=== PATIENT | female | born 1995 | race African-American/Black ===

== ENCOUNTER 2017-02-10 22:39 | Emergency (ER) | payer SELFPAY ==
--- NOTE | 2017-02-11 00:15 | ER Document Report ---
ED General - General Chief Complaint: Chest Pain Stated Complaint: CHEST PAIN Time Seen by Provider: 02/11/17 00:06 Notes: Patient is a 21-year-old female presents with complaint of chest pain and tachycardia. Patient says that her pain is been worsening over the course of a month. She has not seen a doctor for her symptoms. She says the pain seems to be a little better when she lies flat against the bed. She denies being on any medications other than the postop. She does not smoke. No alcohol use. No cocaine use. No history of any heart issues. No history of PE or DVT. No recent leg pain or leg swelling. No fevers or infections. No other complaints at this time. No trauma to the chest. TRAVEL OUTSIDE OF THE [place] IN LAST 30 DAYS: No Past Medical History - Social History Smoking Status: Never Smoker Frequency of alcohol use: None Drug Abuse: None Family History: Reviewed & Not Pertinent Patient has suicidal ideation: No Patient has homicidal ideation: No Renal/ Medical History: Denies: Hx Peritoneal Dialysis Review of Systems - Review of Systems Notes: My Normal Review Basic REVIEW OF SYSTEMS: CONSTITUTIONAL : Denies fever, chills, or sweats. Denies recent illness. EENT: Denies eye, ear, throat, or mouth pain or symptoms. Denies nasal or sinus congestion. CARDIOVASCULAR: Chest pain RESPIRATORY: Denies cough, cold, or chest congestion. Denies shortness of breath, difficulty breathing, or wheezing. GASTROINTESTINAL: Denies abdominal pain. Denies nausea, vomiting, or diarrhea. Denies constipation. Last BM: MUSCULOSKELETAL: Denies neck or back pain or joint pain or swelling. SKIN: Denies rash or skin lesions. NEUROLOGICAL: Denies altered mental status or loss of consciousness. Denies headache. Denies weakness or paralysis or loss of use of either side. Denies problems with gait or speech. Denies sensory or motor loss. ALL OTHER SYSTEMS REVIEWED AND NEGATIVE. Physical Exam - Vital signs Vitals: Temp Pulse Resp BP Pulse Ox 98.6 F 153 H 24 H 142/87 H 100 02/10/17 22:51 02/10/17 22:51 02/10/17 22:51 02/10/17 22:51 02/10/17 22:51 - Notes Notes: General Appearance: Well nourished, alert, cooperative, no acute distress, moderate obvious discomfort. Vitals: reviewed, See vital signs table. Head: no swelling or tenderness to the head Eyes: PERRL, EOMI, Conjuctiva clear Mouth: No decreasd moisture Neck: Supple, no neck tenderness, No thyromegaly Lungs: No wheezing, No rales, No rhonci, No accessory muscle use, good air exchange bilaterally. Heart: Rapid rate, Regular rythm, No murmur, no rub Abdomen: Normal BS, soft, No rigidity, No abdominal tenderness, No guarding, no rebound, no abdominal masses, no organomegaly Extremities: strength 5/5 in all extremities, good pulses in all extremities, no swelling or tenderness in the extremities, no edema. Skin: warm, dry, appropriate color, no rash Neuro: speech clear, oriented x 3, normal affect, responds appropriately to questions. Course - Re-evaluation Re-evalutation: 02/11/17 01:38 Patient is feeling much improved after the pain medicine and Ativan. Her heart rate is now down into the 80s. I will obtain a CTA of her chest being that she has been having this pain for month and she came in very tachycardic with the pain. 02/11/17 02:[address] is negative. Heart rate continues be normal. Some of pain is starting to come back. I will give a dose of Toradol. I will discharge her home on Naprosyn. Patient is no evidence of PE or DVT on the CT scan. Her cardiac enzymes are negative. She has no coronary artery risk factors. She is no pleural effusion. Pain is been ongoing for months. This could be related to costochondritis or possible pleurisy. I informed her follow-up closely with her primary care doctor. Also included Dr. Dumont on the discharge paperwork if she is unable to follow-up with her primary care doctor. Patient encouraged to return to ER if she is worsening pain, difficulty breathing, or feels unwell. Patient agrees with the plan and will be discharged home. Dictation of this chart was performed using voice recognition software; therefore, there may be some unintended grammatical errors. - Vital Signs Vital signs: Temp Pulse Resp BP Pulse Ox 98.6 F 71 22 H 122/79 100 02/10/17 22:51 02/11/17 02:00 02/11/17 02:23 02/11/17 02:23 02/11/17 02:23 - Laboratory Result Diagrams: 02/11/17 00:50 02/11/17 00:50 Laboratory results interpreted by me: 02/11/17 00:50 Hgb 11.6 L Hct 35.3 L MCV 79 L MCH 26.1 L RDW 15.9 H Eosinophils % 6.1 H - EKG Interpretation by Me Additional EKG results interpreted by me: 02/11/17 00:07 EKG is reviewed and interpreted by me. EKG shows sinus tachycardia with a rate of [address] segment elevation or depression. No ischemic T-wave inversions. FL interval, QRS duration, QTc intervals are within normal range. No old EKG available for comparison. Procedures - Ultrasound/Bedside Bedside cardiac ultrasound Notes: 02/11/17 01:39 Ultrasound was performed and interpreted by me. Bedside cardiac ultrasound was performed to look for any evidence of pericardial effusion. I performed a long axis and short axis parasternal view of the heart. I saw no evidence of pericardial effusion on either view. Discharge - Discharge Clinical Impression: Chest pain Qualifiers: Chest pain type: unspecified Qualified Code(s): R07.9 - Chest pain, unspecified Condition: Good Disposition: HOME, SELF-CARE Additional Instructions: Your blood work looking at your heart was normal. We performed a CT scan of your chest. The CT scan showed no evidence of blood clots in your lungs and no evidence of fluid around your heart. Your pain could possibly be related to inflammation around the lungs. This is called pleurisy. Could also be related to inflammation of the rib cartilage. At this time we will treat you with anti- inflammatory medications to see if this helps your pain. Please follow-up with your doctor in 1 week for reevaluation. If you are unable to follow-up with your primary care doctor you can follow-up with the gypsum roofer, Dr. Dumont. I have included his name and number in your discharge instructions. Return to the ER if you have fevers, worsening pain, or difficulty breathing. Prescriptions: Naproxen [Naprosyn 250 mg Tablet] 250 mg PO BID #20 tablet Forms: Return to Work Referrals: KE DUMONT MD [ACTIVE STAFF] - 02/18/17
[2017-02-11] MEDS ORDERED: MORPHINE SULFATE 10 MG/ML INJ IV ONE (00:16)
[2017-02-11] MEDS ORDERED: LORAZEPAM INJ 2 MG/1 ML VIAL IV ONE (00:16)
--- NOTE | 2017-02-11 01:02 | RADIOLOGY REPORT (SQ) ---
EXAM DESCRIPTION: CHEST SINGLE VIEW COMPLETED DATE/TIME: 02/11/2017 12:33 am REASON FOR STUDY: chest pain COMPARISON: None. EXAM PARAMETERS: NUMBER OF VIEWS: One view. TECHNIQUE: Single frontal radiographic view of the chest acquired. RADIATION DOSE: NA LIMITATIONS: None. FINDINGS: LUNGS AND PLEURA: No opacities, masses or pneumothorax. No pleural effusion. MEDIASTINUM AND HILAR STRUCTURES: No masses. Contour normal. HEART AND VASCULAR STRUCTURES: Heart normal in size. Normal vasculature. BONES: No acute findings. HARDWARE: None in the chest. OTHER: No other significant finding. IMPRESSION: NO ACUTE RADIOGRAPHIC FINDING IN THE CHEST. TECHNICAL DOCUMENTATION: JOB ID: [id number]
[2017-02-11 01:07] LABS: ABSOLUTE EOSINOPHILS # (AUTO) 0.3 10^3/uL (0.0-0.6); ABSOLUTE LYMPHOCYTES (AUTO) 1.4 10^3/uL (0.5-4.7); ABSOLUTE MONOCYTES (AUTO) 0.6 10^3/uL (0.1-1.4); ABSOLUTE NEUT (AUTO) 2.8 10^3/uL (1.7-8.2); BASOPHILS % (AUTO) 0.3 % (0-2); EOSINOPHILS % (AUTO) 6.1 % (0-6); HEMATOCRIT 35.3 % (36.0-47.0); HEMOGLOBIN 11.6 g/dL (12.0-15.5); HGB HCT DIFFERENCE -0.5; LYMPHOCYTES % (AUTO) 27.9 % (13-45); MEAN CORPUSCULAR HEMOGLOBIN 26.1 pg (27.0-33.4); MEAN CORPUSCULAR HGB CONC 32.9 g/dL (32.0-36.0); MEAN CORPUSCULAR VOLUME 79 fl (80-97); MONOCYTES % (AUTO) 11.7 % (3-13); RED BLOOD COUNT 4.45 10^6/uL (3.72-5.28); RED CELL DISTRIBUTION WIDTH 15.9 % (11.5-14.0); WHITE BLOOD COUNT 5.1 10^3/uL (4.0-10.5)
[2017-02-11 01:13] LABS: APPEARANCE,URINE CLEAR; BILIRUBIN,URINE NEGATIVE (NEGATIVE); GLUCOSE, URINE NEGATIVE (NEGATIVE); KETONES,URINE NEGATIVE (NEGATIVE); LEUKOCYTE ESTERASE,URINE NEGATIVE (NEGATIVE); NITRITE,URINE NEGATIVE (NEGATIVE); PROTEIN,URINE NEGATIVE (NEGATIVE); URINE SPECIFIC GRAVITY 1.023; UROBILINOGEN,URINE NEGATIVE mg/dL (<2.0)
[2017-02-11 01:19] LABS: ALANINE AMINOTRANSFERASE 19 U/L (9-52); ALBUMIN 4.2 g/dL (3.5-5.0); ALKALINE PHOSPHATASE 90 U/L (38-126); ANION GAP 14 (5-19); ASPARTATE AMINO TRANSFERASE 16 U/L (14-36); BILIRUBIN,DIRECT 0.3 mg/dL (0.0-0.4); BILIRUBIN,TOTAL 0.3 mg/dL (0.2-1.3); BLOOD UREA NITROGEN 12 mg/dL (7-20); CALCIUM 9.8 mg/dL (8.4-10.2); CARBON DIOXIDE 23 mmol/L (22-30); CHLORIDE 107 mmol/L (98-107); CREATINE KINASE 81 U/L (30-135); CREATININE RESULT 0.77 mg/dL (0.52-1.25); GLUCOSE 96 mg/dL (75-110); MAGNESIUM 1.9 mg/dL (1.6-2.3); POTASSIUM 4.3 mmol/L (3.6-5.0); SODIUM 143.9 mmol/L (137-145)
[2017-02-11 01:33] LABS: CREATINE KINASE MB < 0.22 ng/mL (<4.55); TROPONIN I < 0.012 ng/mL
[2017-02-11] MEDS ORDERED: NORMAL SALINE 1000 ML 1,000 ML IV ONE (01:36)
[2017-02-11 02:13] LABS: THYROID STIMULATING HORMONE 1.05 uIU/mL (0.47-4.68)
--- NOTE | 2017-02-11 02:36 | RADIOLOGY REPORT (SQ) ---
EXAM DESCRIPTION: CTA CHEST COMPLETED DATE/TIME: 02/11/2017 2:18 am REASON FOR STUDY: chest pain, tachycardia COMPARISON: None. TECHNIQUE: CT scan of the chest performed using helical scanning technique with dynamic intravenous contrast injection. Images reviewed with lung, soft tissue and bone windows. Reconstructed coronal and sagittal MPR images reviewed. Additional 3 dimensional post-processing performed to develop Maximal Intensity Projection images (TX P). All images stored on PACS. All CT scanners at this facility use dose modulation, iterative reconstruction, and/or weight based d osing when appropriate to reduce radiation dose to as low as reasonably achievable (ALARA). [facility]: Dose Right [facility]: CareDose [facility]: Dose Right [facility]: Teradose 4D [facility]: HotDesk CONTRAST TYPE AND DOSE: contrast/concentration: Isovue 370.00 mg/ml; Total Contrast Delivered: 100.0 ml; Total Saline Delivered: 65.0 ml RENAL FUNCTION: None required. The patient is less than 50 years old. RADIATION DOSE: Up-to-date CT equipment and radiation dose reduction techniques were employed. CTDIv ol: 24.8 mGy. DLP: 707 mGy-cm. . LIMITATIONS: None. FINDINGS: LUNGS AND PLEURA: No masses, infiltrates, pneumothorax. No pleural effusions, calcificati ons. AORTA AND GREAT VESSELS: No aneurysm or dissection. HEART: No pericardial effusion. PULMONARY ARTERIES: No emboli visualized in the main pulmonary arteries or the segmental branches. HILAR AND MEDIASTINAL STRUCTURES: No identified masses or abnormal nodes. HARDWARE: None in the chest. UPPER ABDOMEN: No significant findings. Limited exam. THYROID AND OTHER SOFT TISSUES: No masses. No adenopathy. BONES: No acute or significant finding. 3D MIPS: Confirm above findings. OTHER: No other significant finding. IMPRESSION: NORMAL CTA OF THE CHEST. NO PULMONARY EMBOLI. TECHNICAL DOCUMENTATION: JOB ID: [id number] Quality ID # [id number]: Final reports with documentation of one or more dose reduction techniques (e.g., Au tomated exposure control, adjustment of the mA and/or kV according to patient size, use of iterative reconstruction technique) 2010 [email or web address]- All Rights Reserved
[2017-02-11] MEDS ORDERED: KETOROLAC TROMETHAMINE INJ/PF 30 MG/1 ML SDV IV ONE (02:42)
[2017-02-11 04:41] VITALS: BP 119/77
--- NOTE | 2017-02-11 12:21 | EKG REPORT ---
SEVERITY:- BORDERLINE ECG - SINUS TACHYCARDIA PROBABLE LEFT ATRIAL ABNORMALITY : Confirmed by: Christen Leon MD 11-Feb-2017 12:21:25
== END 2017-02-11 04:41 | disposition home or self-care (01) ==
LOC: ER 22:39
DX: R07.9 Chest pain, unspecified (principal); R00.0 Tachycardia, unspecified
CPT/HCPCS: 99285; 96361; 96374; 96375; 36415; 84439; 82553; 82550; 83735; 84443; 84703; 85025; 80053; 81001; 84484; 71010; 71275; 93005; 93010; J1885; J2270; J2060; J7030

== ENCOUNTER 2017-02-24 20:43 | Emergency (ER) | payer SELFPAY ==
[2017-02-24] MEDS ORDERED: CEPHALEXIN 500 MG CAPSULE PO ONE (23:32)
[2017-02-24] MEDS ORDERED: SULFAMETHOXAZOLE/TRIMETHOPRIM 800-160 MG TABLET PO ONE (23:32)
--- NOTE | 2017-02-24 23:32 | ER Document Report ---
ED Skin Rash/Insect Bite/Abscs - General Mode of Arrival: Ambulatory Information source: Patient TRAVEL OUTSIDE OF THE [place] IN LAST 30 DAYS: No - HPI Similar symptoms previously: No Recently seen / treated by doctor: No - General Chief Complaint: Breast Lump Stated Complaint: POSS LUMP ON BREAST Time Seen by Provider: 02/24/17 23:19 - HPI Notes: Patient is a 21-year-old female presented emergency department for a lump between her breasts. Patient states she noticed it last Friday and has become increasingly painful. Patient states that she tried using some witch cathy and Epsom salts with no relief. Patient has no known allergies. Patient is on the double shot. Patient has no other medical problems besides history of Bartholin 's cyst which was removed. (JAMES HOLGUIN) - Related Data Allergies/Adverse Reactions: No Known Allergies Allergy (Unverified 02/24/17 21:31) Past Medical History - General Information source: Patient - Social History Smoking Status: Never Smoker Cigarette use (# per day): No Chew tobacco use (# tins/day): No Smoking Education Provided: No Frequency of alcohol use: None Drug Abuse: None Family History: None Patient has suicidal ideation: No Patient has homicidal ideation: No Surgical Hx: Negative Review of Systems - Review of Systems Constitutional: No symptoms reported EENT: No symptoms reported Cardiovascular: No symptoms reported Respiratory: No symptoms reported Gastrointestinal: No symptoms reported Genitourinary: No symptoms reported Female Genitourinary: No symptoms reported Musculoskeletal: No symptoms reported Skin: See HPI Hematologic/Lymphatic: No symptoms reported Neurological/Psychological: No symptoms reported -: Yes All other systems reviewed and negative Physical Exam - Vital signs Interpretation: Normal - Vital signs Vitals: Temp Pulse Resp BP Pulse Ox 98.7 F 97 16 125/72 99 02/24/17 21:31 02/24/17 21:31 02/24/17 21:31 02/24/17 21:31 02/24/17 21:31 - Notes Notes: GENERAL: Alert, interacts well. No acute distress. HEAD: Normocephalic, atraumatic. EYES: Appear normal. Pupils equal, round, and reactive to light. ENT: Moist mucus membranes, tongue midline. NECK: Full range of motion. Supple. Trachea midline. LUNGS: No respiratory distress. EXTREMITIES: Moves all 4 extremities spontaneously. Normal strength. No edema. NEUROLOGICAL: Alert and oriented x3. Normal speech. No focal neurological deficits. GCS 15. PSYCH: Normal affect, normal mood. SKIN: Warm, dry, normal turgor. Small cystic tender area located at the right top of the breast cleft, it is firm, not fluctuant. There is an extension of the area to the left which is less tender and smaller in size. (JAMES HOLGUIN) - Vital Signs Vital signs: Temp Pulse Resp BP Pulse Ox 98.7 F 97 16 125/72 99 02/24/17 21:31 02/24/17 21:31 02/24/17 21:31 02/24/17 21:31 02/24/17 21:31 Discharge - Discharge Clinical Impression: Abscess Condition: Stable Disposition: HOME, SELF-CARE Additional Instructions: Abscess: You have an abscess (boil). This a pus-forming infection, usually due to staph. Some boils may be left to drain on their own, but most require lancing. From the time the tender lump first appears, it may be three or four days before the abscess is ready to susanna. Local heat and rest help at this stage of treatment. An antibiotic may prevent spread of the infection. Once the abscess is opened, packing may be placed into it. This is done so pus is not sealed inside by premature closure of the cavity. The packing will be removed at your follow-up visit or you may be advised to remove it yourself at home. Sometimes this packing must be replaced a few times during healing. The wound will heal with surprisingly little scar. Depending on the size and location of an abscess, healing can take one to four weeks. You may shower and wash the area around the incision site two or three times a day. Antibiotics may be prescribed, but are usually not necessary after an abscess has been drained. If you develop fever, chilling, worsening pain, or increasing swelling in the area, call the doctor or return immediately. THE INFLAMED CYSTIC AREA IS NOT FLUCTUANT AT THIS TIME. IT MAY CALM DOWN WITH THE ANTIBIOTICS AND NOT NEED INCISION AND DRAINAGE. TAKE THE MEDICATION PRESCRIBED. APPLY MOIST HEAT OR WARM SOAKS TO THE AREA. RETURN TO THE EMERGENCY ROOM IF THE SWELLING GETS WORSE--THE AREA MAY NEED TO BE OPENED AND DRAINED. Prescriptions: Cephalexin Monohydrate [Keflex 500 mg Capsule] 500 mg PO QID #28 capsule Sulfamethoxazole/Trimethoprim [Bactrim Ds Tablet] 2 tab PO BID #28 tablet Scribe Attestation: 02/24/17 23:37 I personally performed the services described in the documentation, reviewed and edited the documentation which was dictated to the scribe in my presence, and it accurately records my words and actions. (SOFÍA MENDOZA) Scribe Documentation - Scribe Written by Benny:: Benny Hudson 02/24/2017 23:55 acting as scribe for :: Gertrudis
[2017-02-25 00:03] VITALS: BP 124/70
== END 2017-02-25 00:02 | disposition home or self-care (01) ==
LOC: ER 20:43
DX: N61.1 Abscess of the breast and nipple (principal)
CPT/HCPCS: 99282

== ENCOUNTER 2017-07-22 21:34 | Emergency (ER) | payer SELFPAY ==
[2017-07-22] MEDS ORDERED: ALBUTEROL SULFATE 0.083% NEB 2.5 MG/3 ML AMPUL NEB SCH (23:45)
[2017-07-22] MEDS ORDERED: PREDNISONE 20 MG TABLET PO ONE (23:48)
[2017-07-22] MEDS ORDERED: ACETAMINOPHEN 325 MG TABLET PO ONE (23:51)
--- NOTE | 2017-07-22 23:51 | ER Document Report ---
ED Medical Screen (RME) - General Chief Complaint: Chest Tightness Stated Complaint: CHEST TIGHTNESS Time Seen by Provider: 07/22/17 23:46 Mode of Arrival: Ambulatory Information source: Patient Notes: 22-year-old female presents to ED for chest tightness cough and wheezing since last week. She states she has had this off and on for several years. She states she came in the emergency room last year and was seen for the same thing and was not given any diagnosis. She states she has no past medical history. She does not smoke and has not smoked. She does not drink she does not use any alcohol. She states she does not work and she lives with her friend. Pulse was 116 in the emergency room temperature was 100.4 respirations were 16. Will get chest x-ray EKG and give her some albuterol and prednisone. We will re- evaluate her after that. TRAVEL OUTSIDE OF THE [place] IN LAST 30 DAYS: No - HPI Onset: Last week - Has also had it off and on for several years Quality of pain: Other - Tight Severity: Severe Pain Level: 5 Associated Symptoms: Chest pain, Cough (nonproductive), Rhinorrhea, Sinus pain/ drainage Exacerbated by: Coughing Relieved by: Denies Similar symptoms previously: Yes Recently seen / treated by doctor: No - Related Data Smoking: Non-smoker Frequency of alcohol use: None Drug Abuse: None Allergies/Adverse Reactions: No Known Allergies Allergy (Verified 04/20/17 15:06) Past Medical History - General Information source: Patient - Social History Cigarette use (# per day): No Chew tobacco use (# tins/day): No Frequency of alcohol use: None Drug Abuse: None Lives with: Friend Family history: Reviewed & Not Pertinent - Past Medical History Cardiac Medical History: Reports: None Pulmonary Medical History: Reports: None EENT Medical History: Reports: None Neurological Medical History: Reports: None Endocrine Medical History: Reports: None Renal/ Medical History: Reports: None Malignancy Medical History: Reports: None GI Medical History: Reports: None Musculoskeltal Medical History: Reports None Skin Medical History: Reports None Psychiatric Medical History: Reports: None Traumatic Medical History: Reports: None Infectious Medical History: Reports: None Surgical Hx: Negative Past Surgical History: Reports: None - Immunizations Immunizations up to date: Yes Hx Diphtheria, Pertussis, Tetanus Vaccination: Yes Review of Systems - Review of Systems Constitutional: No symptoms reported EENT: No symptoms reported Cardiovascular: Other - chest tight Respiratory: Cough, Wheezing Gastrointestinal: No symptoms reported Genitourinary: No symptoms reported Female Genitourinary: No symptoms reported Musculoskeletal: No symptoms reported Skin: No symptoms reported Hematologic/Lymphatic: No symptoms reported Neurological/Psychological: No symptoms reported -: Yes All other systems reviewed and negative Physical Exam - Vital signs Vitals: Temp Pulse Resp BP Pulse Ox 99.7 F 123 H 16 136/79 H 99 07/22/17 21:40 07/22/17 21:40 07/22/17 21:40 07/22/17 21:40 07/22/17 21:40 Interpretation: Normal - General General appearance: Appears well, Alert - HEENT Head: Normocephalic, Atraumatic Eyes: Normal Pupils: PERRL Ears: Normal External canal: Normal Tympanic membrane: Normal Sinus: Normal Nasal: Swelling, Clear rhinorrhea Pharynx: Post nasal drainage Neck: Normal - Respiratory Respiratory status: No respiratory distress. No: Respiratory distress, Tachypnea Chest status: Nontender Breath sounds: Decreased air movement, Nonproductive cough. No: Productive cough, Rales, Rhonchi, Stridor, Wheezing Chest palpation: Normal - Cardiovascular Rhythm: Regular, Tachycardia Heart sounds: Normal auscultation Murmur: No - Abdominal Inspection: Normal Distension: No distension Bowel sounds: Normal Tenderness: Nontender Organomegaly: No organomegaly - Back Back: Normal, Nontender - Extremities General upper extremity: Normal inspection, Nontender, Normal color, Normal ROM , Normal temperature General lower extremity: Normal inspection, Nontender, Normal color, Normal ROM , Normal temperature, Normal weight bearing. No: Nacho's sign - Neurological Neuro grossly intact: Yes Cognition: Normal Orientation: AAOx4 Franko Coma Scale Eye Opening: Spontaneous Franko Coma Scale Verbal: Oriented Franko Coma Scale Motor: Obeys Commands Franko Coma Scale Total: 15 Speech: Normal Motor strength normal: LUE, RUE, LLE, RLE Sensory: Normal - Psychological Associated symptoms: Normal affect, Normal mood - Skin Skin Temperature: Warm Skin Moisture: Dry Skin Color: Normal Course - Re-evaluation Re-evalutation: 07/23/17 01:07 Negative chest x-ray. Patient was treated with 2 albuterol and prednisone will be discharged home with albuterol inhaler and eScription for prednisone. Patient to follow-up with her primary doctor. - Vital Signs Vital signs: Temp Pulse Resp BP Pulse Ox 98.7 F 129 H 18 130/75 H 100 07/23/17 01:10 07/23/17 01:10 07/23/17 01:10 07/23/17 01:10 07/23/17 01:10 - Diagnostic Test Radiology reviewed: Image reviewed, Reports reviewed - EKG Interpretation by Me When compared to previous EKG there are: No significant change Doctor's Discharge - Discharge Clinical Impression: Viral respiratory illness Condition: Stable Disposition: HOME, SELF-CARE Instructions: Family Physicians / Practices Additional Instructions: UPPER RESPIRATORY ILLNESS: You have a viral infection of the respiratory passages -- a "cold." This common infection causes nasal congestion, drainage, and often sore throat and cough. It is highly contagious. The disease usually lasts about 10 to 14 days. There is no "cure" for the viral infection -- it must run its course. If there is a complication, such as bacterial infection in the nose, sinuses, middle ear, or bronchial tubes, antibiotics may be required. The antibiotics won't affect the virus. Drink plenty of fluids. A humidifier may help. An expectorant medication or decongestant may make you more comfortable. Use acetaminophen or ibuprofen for fever or aches. See the doctor if fever persists over two days, if there is any significant worsening of your symptoms, or if you simply fail to improve as expected. BRONCHOSPASM: You have tightness in the bronchial tubes, called bronchospasm. This often occurs with bronchial infections. Allergies, inhaled chemicals, and polluted or cold air can also provoke bronchospasm. It's more likely in patients with asthma in the family. Emergency treatment of bronchospasm may include adrenaline shots or bronchodilator aerosol. You may feel lightheaded and have a rapid pulse for an hour or two. Rest and get plenty of fluids. At home, we'll treat you with a bronchodilator inhaler. Antibiotics and corticosteroids may be required for some patients. Until you recover, avoid chemical fumes, dusts, pollens, and exercising in very cold or dry air. If you smoke, stop now!! If you develop a fever, increased wheezing, chest pain, or severe shortness of breath, you should contact the doctor immediately. COUGH-SUPPRESSANT & EXPECTORANT MEDICATION: You are to use a cough medication as needed for relief of symptoms. This medicine is a combination of an expectorant (to make the mucous thinner and more easily "coughed up") and a cough suppressant (to reduce the frequency of coughing). The cough-suppressant medicine is related to narcotics. You may experience mild nausea and sleepiness. Some patients who are very sensitive to narcotics may have stomach pain from this medicine. Taking the medicine with food reduces these side effects. Do not drive or work with machinery until you know how this medicine affects you. The expectorant should have no side effects. Iodine-containing expectorants (such as organidin) should not be taken by persons with active thyroid disease unless approved by your doctor. Call the doctor if you develop shortness of breath, hives, rash, itching, lightheadedness, or severe nausea and vomiting. INHALED BRONCHODILATORS: You have received a treatment of and/or prescription for an inhaled bronchodilator -- a medication which stimulates the airways in the lung to dilate. This improves the flow of air in asthma, bronchitis, and emphysema. These medicines have some similarity to adrenaline, and can cause similar side effects: shakiness, racing heart, and a sense of nervousness. These side effects decrease with time. Contact your doctor if these side effects are severe. Do not over-use the medicine. Too-frequent use of the inhaler may make it ineffective. Call your doctor if the inhaler is not controlling your symptoms at the prescribed doses. STEROID MEDICATION: You have been given an injection of or oral medicine of the cortisone/ steroid class. This medication is used to control inflammation or allergy. Ruperto t is usually only given for a short period of time, until the acute process subsides. There are usually no side effects from short-term use of cortisone-like medications. Some persons feel an increased sense of well-being and are not sleepy at bedtime. Long-term use of cortisone medications is best avoided, unless required for a severe condition. If your condition does not remit, or relapses after the course of corticosteroid medication, you should consult your physician. USE OF ACETAMINOPHEN (Tylenol): Acetaminophen may be taken for pain relief or fever control. It's much safer than aspirin, offering a wider range of "safe" dosages. It is safe during . Some brand names are Tylenol, Panadol, Datril, Anacin 3, Tempra, and Liquiprin. Acetaminophen can be repeated every four hours. The following are maximum recommended dosages: >89 pounds or adults 650 mg to 900 mg Acetaminophen can be repeated every four hours. Maximum dose not to exceed 4000 mg a day. FOLLOW-UP CARE: If you have been referred to a physician for follow-up care, call the physician s office for an appointment as you were instructed or within the next two days. If you experience worsening or a significant change in your symptoms, notify the physician immediately or return to the Emergency Department at any time for re-evaluation. Prescriptions: Prednisone [Deltasone 20 mg Tablet] 3 tab PO DAILY 5 Days tablet Forms: Elevated Blood Pressure Referrals: MIGNON ARMAS PA-C [Primary Care Provider] - Follow up as needed
--- NOTE | 2017-07-23 00:06 | RADIOLOGY REPORT (SQ) ---
EXAM DESCRIPTION: CHEST PA/LAT COMPLETED DATE/TIME: 07/22/2017 11:57 pm REASON FOR STUDY: chest pain COMPARISON: None. EXAM PARAMETERS: NUMBER OF VIEWS: two views TECHNIQUE: Digital Frontal and Lateral radiographic views of the chest acquired. RADIATION DOSE: NA LIMITATIONS: none FINDINGS: LUNGS AND PLEURA: No opacities, masses or pneumothorax. No pleural effusion. MEDIASTINUM AND HILAR STRUCTURES: No masses or contour abnormalities. HEART AND VASCULAR STRUCTURES: Heart normal size. No evidence for failure. BONES: No acute findings. HARDWARE: None in the chest. OTHER: No other significant finding. IMPRESSION: NO SIGNIFICANT RADIOGRAPHIC FINDING IN THE CHEST. TECHNICAL DOCUMENTATION: JOB ID: [id number] [place]-72 2010 [employer]- All Rights Reserved
[2017-07-23] MEDS ORDERED: ALBUTEROL SULFATE HFA (90 MCG/PUFF) 8 GM MDI (1 MDI/ER DISP) IH PRN (01:08)
[2017-07-23 01:28] VITALS: BP 130/75
--- NOTE | 2017-07-23 09:15 | EKG REPORT ---
SEVERITY:- BORDERLINE ECG - SINUS TACHYCARDIA PROBABLE LEFT ATRIAL ABNORMALITY : Confirmed by: Vasquez Cavanaugh 23-Jul-2017 09:15:16
== END 2017-07-23 01:20 | disposition home or self-care (01) ==
LOC: ER 21:34
DX: J98.9 Respiratory disorder, unspecified (principal); B97.89 Other viral agents as the cause of diseases classified elsewhere; R07.89 Other chest pain; R05 Cough; R06.2 Wheezing; J34.89 Other specified disorders of nose and nasal sinuses; R09.82 Postnasal drip
CPT/HCPCS: 93005; 99283; 71046; 93010; J7512; J3490

== ENCOUNTER 2017-08-21 16:01 | Emergency (ER) | payer SELFPAY ==
[2017-08-21] MEDS ORDERED: NORMAL SALINE 1000 ML 1,000 ML IV ONE (16:25)
--- NOTE | 2017-08-21 16:30 | ER Document Report ---
ED Medical Screen (RME) - General Chief Complaint: Cough Stated Complaint: CHEST PAIN Time Seen by Provider: 08/21/17 16:20 Notes: RME DISCLOSURE I have seen this patient as part of a Rapid Medical Evaluation and, if applicable, placed any initially appropriate orders. The patient will be seen and fully evaluated, including a full history and physical exam, by a provider ( in Main ED or Fast Track) when a room becomes available. 22-year-old female here with complaints of chest pain, shortness of breath ongoing for the past 4 hours. She was sitting at home with the pain started. She does not have any cough at this time and has not had any cough for at least one month. She does not have any wheezing congestion runny nose. She denies any extremity pain or swelling. No prior history of PE or family history of same. No recent surgery or prolonged immobilization. EXAM Moderately tachycardic, 120s-130s, regular rhythm Minimal tachypnea, low to mid 20s Minimal upper midsternal chest wall tenderness TRAVEL OUTSIDE OF THE [place] IN LAST 30 DAYS: No - Related Data Allergies/Adverse Reactions: No Known Allergies Allergy (Verified 08/21/17 16:03) Past Medical History - Social History Family history: Reviewed & Not Pertinent Renal/ Medical History: Denies: Hx Peritoneal Dialysis - Immunizations Immunizations up to date: Yes Hx Diphtheria, Pertussis, Tetanus Vaccination: Yes Physical Exam - Vital signs Vitals: Temp Pulse Resp BP Pulse Ox 98.5 F 135 H 24 H 135/78 H 99 08/21/17 16:10 08/21/17 16:10 08/21/17 16:10 08/21/17 16:10 08/21/17 16:10 Course - Vital Signs Vital signs: Temp Pulse Resp BP Pulse Ox 98.5 F 135 H 24 H 135/78 H 99 08/21/17 16:10 08/21/17 16:10 08/21/17 16:10 08/21/17 16:10 08/21/17 16:10
[2017-08-21 16:59] LABS: ABSOLUTE EOSINOPHILS # (AUTO) 0.2 10^3/uL (0.0-0.6); ABSOLUTE LYMPHOCYTES (AUTO) 0.7 10^3/uL (0.5-4.7); ABSOLUTE MONOCYTES (AUTO) 0.4 10^3/uL (0.1-1.4); ABSOLUTE NEUT (AUTO) 1.7 10^3/uL (1.7-8.2); BASOPHILS % (AUTO) 0.2 % (0-2); EOSINOPHILS % (AUTO) 5.8 % (0-6); HEMATOCRIT 39.3 % (36.0-47.0); HEMOGLOBIN 12.7 g/dL (12.0-15.5); LYMPHOCYTES % (AUTO) 23.4 % (13-45); MEAN CORPUSCULAR HGB CONC 32.3 g/dL (32.0-36.0); MEAN CORPUSCULAR VOLUME 80 fl (80-97); MONOCYTES % (AUTO) 14.6 % (3-13); PLATELET COUNT 297 10^3/uL (150-450); RED BLOOD COUNT 4.88 10^6/uL (3.72-5.28); RED CELL DISTRIBUTION WIDTH 15.2 % (11.5-14.0); TOTAL CELLS COUNTED % (AUTO) 100 %
[2017-08-21 17:19] LABS: ANION GAP 14 (5-19); BLOOD UREA NITROGEN 5 mg/dL (7-20); CALCIUM 9.6 mg/dL (8.4-10.2); CARBON DIOXIDE 24 mmol/L (22-30); CHLORIDE 105 mmol/L (98-107); GLUCOSE 85 mg/dL (75-110); POTASSIUM 4.2 mmol/L (3.6-5.0); SODIUM 142.7 mmol/L (137-145)
--- NOTE | 2017-08-21 17:51 | RADIOLOGY REPORT (SQ) ---
EXAM DESCRIPTION: CTA CHEST COMPLETED DATE/TIME: 08/21/2017 5:34 pm REASON FOR STUDY: tachycardic, CP rad to L neck; eval PE COMPARISON: CTA chest 04/20/2017 TECHNIQUE: CT scan of the chest performed using helical scanning technique with dynamic intravenous contrast injection. Images reviewed with lung, soft tissue and bone windows. Reconstructed coronal and sagittal MPR images reviewed. Additional 3 dimensional post-processing performed to develop Maximal Intensity Projection images (PR P). All images stored on PACS. All CT scanners at this facility use dose modulation, iterative reconstruction, and/or weight based d osing when appropriate to reduce radiation dose to as low as reasonably achievable (ALARA). [facility]: Dose Right [facility]: CareDose [facility]: Dose Right [facility]: Teradose 4D [facility]: ThrowMotion CONTRAST TYPE AND DOSE: contrast/concentration: Isovue 370.00 mg/ml; Total Contrast Delivered: 74.0 ml; Total Saline Delivered: 80.0 ml Contrast bolus optimized for the pulmonary arteries. Not diagnostic for the aorta. RENAL FUNCTION: None required. The patient is less than 50 years old. RADIATION DOSE: CT Rad equipment meets quality standard of care and radiation dose reduction techniq ues were employed. CTDIvol: 3.3 - 16.5 mGy. DLP: 576 mGy-cm. . LIMITATIONS: None. FINDINGS: LUNGS AND PLEURA: No masses, infiltrates, pneumothorax. No pleural effusions, calcificati ons. AORTA AND GREAT VESSELS: No aneurysm. No dissection. HEART: No pericardial effusion. No significant coronary artery calcifications. PULMONARY ARTERIES: No emboli visualized in the main pulmonary arteries or the segmental branches. HILAR AND MEDIASTINAL STRUCTURES: No identified masses or abnormal nodes. HARDWARE: None in the chest. UPPER ABDOMEN: No significant findings. Limited exam. THYROID AND OTHER SOFT TISSUES: No masses. No adenopathy. BONES: No acute or significant finding. 3D MIPS: Confirm above findings. OTHER: No other significant finding. IMPRESSION: NORMAL CTA OF THE CHEST. NO PULMONARY EMBOLI. COMMENT: Quality ID # [id number]: Final reports with documentation of one or more dose reduction techniques (e.g., Automated exposure control, adjustment of the mA and/or kV according to patient size, use of iterative reconstruction technique) TECHNICAL DOCUMENTATION: JOB ID: [id number]- All Rights Reserved Reading location - IP/workstation name: [email or web address]
--- NOTE | 2017-08-21 18:58 | ER Document Report ---
ED General - General Chief Complaint: Cough Stated Complaint: CHEST PAIN Time Seen by Provider: 08/21/17 16:20 Mode of Arrival: Ambulatory Information source: Patient Notes: 22-year-old female presents with complaints of chest pain shortness of breath of 4 hour duration. Patient notes it is pinpoint associated with pain upon palpation and movement. She denies any PE or DVT risk factors denies any previous similar episodes denies any cardiac risk factors. Patient denies any productivity to cough TRAVEL OUTSIDE OF THE [place] IN LAST 30 DAYS: No - HPI Onset: Just prior to arrival Onset/Duration: Sudden Quality of pain: Sharp Severity: Mild Pain Level: 1 Associated symptoms: Chest pain, Shortness of breath Exacerbated by: Movement, Walking Relieved by: Denies Similar symptoms previously: No Recently seen / treated by doctor: No - Related Data Allergies/Adverse Reactions: No Known Allergies Allergy (Verified 08/21/17 16:03) Past Medical History - Social History Smoking Status: Never Smoker Cigarette use (# per day): No Chew tobacco use (# tins/day): No Smoking Education Provided: No Frequency of alcohol use: None Drug Abuse: None Family History: None Patient has suicidal ideation: No Patient has homicidal ideation: No Renal/ Medical History: Denies: Hx Peritoneal Dialysis - Immunizations Immunizations up to date: Yes Hx Diphtheria, Pertussis, Tetanus Vaccination: Yes Review of Systems - Review of Systems Notes: REVIEW OF SYSTEMS: CONSTITUTIONAL : Denies fever, chills, or sweats. Denies recent illness. EENT: Denies eye, ear, throat, or mouth pain or symptoms. Denies nasal or sinus congestion or discharge. Denies throat, tongue, or mouth swelling or difficulty swallowing. CARDIOVASCULAR: Admits to chest pain RESPIRATORY: Denies cough, cold, or chest congestion. Denies shortness of breath, difficulty breathing, or wheezing. GASTROINTESTINAL: Denies abdominal pain or distention. Denies nausea, vomiting , or diarrhea. Denies blood in vomitus, stools, or per rectum. Denies black, tarry stools. Denies constipation. GENITOURINARY: Denies difficulty urinating, painful urination, burning, frequency, blood in urine, or discharge. MUSCULOSKELETAL: Denies back or neck pain or stiffness. Denies joint pain or swelling. SKIN: Denies rash, lesions or sores. HEMATOLOGIC : Denies easy bruising or bleeding. LYMPHATIC: Denies swollen, enlarged glands. NEUROLOGICAL: Denies confusion or altered mental status. Denies passing out or loss of consciousness. Denies dizziness or lightheadedness. Denies headache. Denies weakness or paralysis or loss of use of either side. Denies problems with gait or speech. Denies sensory loss, numbness, or tingling. Denies seizures. PSYCHIATRIC: Denies anxiety or stress. Denies depression, suicidal ideation, or homicidal ideation. ALL OTHER SYSTEMS REVIEWED AND NEGATIVE. Dictation was performed using [employer] voice recognition software PHYSICAL EXAMINATION: GENERAL: Well-appearing, well-nourished and in no acute distress. HEAD: Atraumatic, normocephalic. EYES: Pupils equal round and reactive to light, extraocular movements intact, sclera anicteric, conjunctiva are normal. ENT: Nares patent, oropharynx clear without exudates. Moist mucous membranes. NECK: Normal range of motion, supple without lymphadenopathy LUNGS: Breath sounds clear to auscultation bilaterally and equal. No wheezes rales or rhonchi. HEART: Regular rate and rhythm without murmurs ABDOMEN: Soft, nontender, nondistended abdomen. No guarding, no rebound. No masses appreciated. Musculoskeletal: Normal range of motion, no pitting or edema. No cyanosis. Chest wall pain reproducing same exact pain NEUROLOGICAL: Cranial nerves grossly intact. Normal speech, normal gait. Normal sensory, motor exams PSYCH: Normal mood, normal affect. SKIN: Warm, Dry, normal turgor, no rashes or lesions noted. Physical Exam - Vital signs Vitals: Temp Pulse Resp BP Pulse Ox 98.5 F 135 H 24 H 135/78 H 99 08/21/17 16:10 08/21/17 16:10 08/21/17 16:10 08/21/17 16:10 08/21/17 16:10 Course - Re-evaluation Re-evalutation: 08/21/17 22:48 Lab work noted no significant abnormality, patient's risk factors for DVT PE were minimal d-dimer was normal however patient was tachycardic tachypneic until she was told her symptoms were within normal limits and then at that point her vital signs were normal. Patient will be discharged home with close follow-up and is otherwise stable well-appearing no distress After performing a Medical Screening Examination, I estimate there is LOW risk for RUPTURED ESOPHAGUS, PNEUMOTHORAX, PULMONARY EMBOLISM, ACUTE CORONARY SYNDROME, OR THORACIC AORTIC DISSECTION, thus I consider the discharge disposition reasonable. I have reevaluated this patient multiple times and no significant life threatening changes are noted. The patient and I have discussed the diagnosis and risks, and we agree with discharging home with close follow-up. We also discussed returning to the Emergency Department immediately if new or worsening symptoms occur. We have discussed the symptoms which are most concerning (e.g., bloody sputum, worsening pain or shortness of breath) that necessitate immediate return. - Vital Signs Vital signs: Temp Pulse Resp BP Pulse Ox 98.2 F 98 18 130/70 H 100 08/21/17 19:37 08/21/17 19:37 08/21/17 19:37 08/21/17 19:37 08/21/17 19:37 - Laboratory Result Diagrams: 08/21/17 16:38 08/21/17 16:38 Laboratory results interpreted by me: 08/21/17 08/21/17 16:38 16:38 WBC 3.0 L [facility]CH 26.0 L RDW 15.2 H Monocytes % 14.6 H BUN 5 L - Diagnostic Test Radiology reviewed: Image reviewed, Reports reviewed - EKG Interpretation by Me EKG shows normal: Sinus rhythm, Holiday, Intervals, QRS Complexes Discharge - Discharge Clinical Impression: Chest wall pain, Tachycardia, Tachypnea Condition: Stable Disposition: HOME, SELF-CARE Instructions: Chest Wall Pain ([facility]) Additional Instructions: Follow up with your physician tomorrow for further care or return to the ED IMMEDIATELY if symptoms worsen or new concerns occur. If you cannot afford to follow up with your primary care physician a list of low cost clinics have been provided at the end of your discharge papers as well. Prescriptions: Naproxen 500 mg PO BID #20 tablet
[2017-08-21 19:39] VITALS: BP 130/70
--- NOTE | 2017-08-21 22:07 | EKG REPORT ---
SEVERITY:- BORDERLINE ECG - SINUS TACHYCARDIA PROBABLE LEFT ATRIAL ABNORMALITY : Confirmed by: Vasquez Cavanaugh 21-Aug-2017 22:05:40
== END 2017-08-21 19:37 | disposition home or self-care (01) ==
LOC: ER 16:01
DX: R07.89 Other chest pain (principal); R00.0 Tachycardia, unspecified; R06.82 Tachypnea, not elsewhere classified
CPT/HCPCS: 93005; 99284; 96360; 36415; 85025; 81025; 80048; 84484; 85379; 71275; 93010; J7030

== ENCOUNTER 2017-10-09 15:40 | Emergency (ER) | payer SELFPAY ==
--- NOTE | 2017-10-09 16:45 | ER Document Report ---
ED Medical Screen (RME) - General Chief Complaint: Pelvic Pain Stated Complaint: PELVIC PAIN Time Seen by Provider: 10/09/17 16:38 Notes: RAPID MEDICAL EVALUATION DISCLOSURE I have seen this patient as part of a Rapid Medical Evaluation and, if applicable, placed any initially appropriate orders. The patient will be seen and fully evaluated, including a full history and physical exam, by a provider ( in Main ED or Fast Track) when a room becomes available. 22-year-old female here with complaints of heavy vaginal bleeding for the past 7 days. She has been going through 5-10 pads daily. She actually started spotting several weeks ago but it has progressively worsened. Also having some lower abdominal cramping. She has tried [id number] pain medications with not much relief. She is currently taking the Depakote shot and her last injection was August. She is due for another one in November. TRAVEL OUTSIDE OF THE [place] IN LAST 30 DAYS: No - Related Data Allergies/Adverse Reactions: No Known Allergies Allergy (Verified 08/21/17 16:03) Past Medical History - Social History Family history: Reviewed & Not Pertinent Renal/ Medical History: Denies: Hx Peritoneal Dialysis - Immunizations Immunizations up to date: Yes Hx Diphtheria, Pertussis, Tetanus Vaccination: Yes Physical Exam - Vital signs Vitals: Temp Pulse Resp BP Pulse Ox 98.9 F 101 H 16 126/66 H 98 10/09/17 15:45 10/09/17 15:45 10/09/17 15:45 10/09/17 15:45 10/09/17 15:45 Course - Vital Signs Vital signs: Temp Pulse Resp BP Pulse Ox 98.9 F 101 H 16 126/66 H 98 10/09/17 15:45 10/09/17 15:45 10/09/17 15:45 10/09/17 15:45 10/09/17 15:45
--- NOTE | 2017-10-09 17:09 | ER Document Report ---
ED GI/ - General Chief Complaint: Pelvic Pain Stated Complaint: PELVIC PAIN Time Seen by Provider: 10/09/17 16:38 Mode of Arrival: Ambulatory Information source: Patient TRAVEL OUTSIDE OF THE [place] IN LAST 30 DAYS: No - HPI Patient complains to provider of: Abdominal pain, Vaginal bleeding Notes: 10/09/17 17:07 Patient is here with complaints of pelvic cramping and vaginal bleeding. Patient states that she is on Depo-Provera. She was typically getting the Depakote shot every 2 months. In July they realized that she was getting it too often so they did not give it to her until August. 2-3 weeks ago she started having some vaginal spotting that has now turned into heavier vaginal bleeding and cramping. She denies fever. She had some nausea vomiting last week, this has resolved. She denies any diarrhea. She denies dysuria or hematuria. No rash. No blood thinners. No chest pain or shortness of breath. No numbness, tingling, weakness. She states that she took a test last week that was negative. She denies any other complaints at this time. No syncope, dizziness, shortness of breath. - Related Data Allergies/Adverse Reactions: No Known Allergies Allergy (Verified 08/21/17 16:03) Home Medications: no home medications Past Medical History - Social History Smoking Status: Never Smoker Chew tobacco use (# tins/day): No Frequency of alcohol use: None Drug Abuse: None Family History: None Patient has suicidal ideation: No Patient has homicidal ideation: No Renal/ Medical History: Denies: Hx Peritoneal Dialysis - Immunizations Immunizations up to date: Yes Hx Diphtheria, Pertussis, Tetanus Vaccination: Yes Review of Systems - Review of Systems -: Yes All other systems reviewed and negative Physical Exam - Vital signs Vitals: Temp Pulse Resp BP Pulse Ox 98.9 F 101 H 16 126/66 H 98 10/09/17 15:45 10/09/17 15:45 10/09/17 15:45 10/09/17 15:45 10/09/17 15:45 - Notes Notes: GENERAL: alert, cooperative, nontoxic, no distress. HEAD: normocephalic, atraumatic EYES: conjunctiva pink without discharge, no external redness or swelling. EARS: no external swelling, no external redness NOSE: atraumatic, no external swelling MOUTH/THROAT: mucous membranes moist and pink, posterior pharynx without erythema, swelling, exudate. No trismus or drooling. NECK: soft, supple, full range of motion, no meningismus. CHEST: no distress, lungs clear and equal throughout. No wheezing, rales, rhonchi. CARDIAC: regular rate and rhythm, no murmur, normal capillary refill, normal pulses. No peripheral edema noted. ABDOMEN: Soft, nontender. No rebound tenderness or guarding. No pelvic tenderness on exam. BACK: full range of motion, no CVA tenderness. EXTREMITIES: full range of motion of all extremities. No redness, no swelling. NEURO: alert and oriented x 3, no focal deficits, full range of motion of all extremities. PYSCH: appropriate mood, affect. Patient is cooperative. SKIN: pink, warm, dry, no rash. : Performed with female aircraft powerplant repairer at the bedside. No external lesions. Moderate amount of blood and blood clots noted within the vaginal vault. Cervix is closed. No cervical motion tenderness. No significant discharge. No adnexal tenderness or masses on bimanual exam. Course - Re-evaluation Re-evalutation: 10/09/17 19:11 The patient is nontoxic appearing with stable vitals. She is here with complaints of pelvic cramping and vaginal bleeding. Started a few weeks ago. She states that she was getting Depakote every 2 months until August and then the stress her out to every 3 months. Since that time she has had some spotting and now heavy bleeding and cramping. She is no abdominal tenderness on exam. No fever. Urinalysis shows no obvious signs of infection with likely some contamination. Urine cultures currently pending. The patient has no dysuria or hematuria. Wet prep is unremarkable. Hemoglobin is stable and not anemic. GC chlamydia cultures are currently pending. The patient states that she does not want to be treated at this time she will await her test results. This point the patient is likely having some irregular vaginal bleeding due to the fact that they changed her Depakote schedule. She is not . This point she can be discharged home with a prescription for Naprosyn and referral to [facility]. She is instructed to follow-up with [facility] at the next available appointment. Follow-up sooner for increasing pain, fever, severe bleeding, persistent vomiting, syncope, dizziness, or for any further concerns. The patient is noted to have elevated blood pressure during today's emergency department visit. The patient was informed of this finding. The patient was instructed that this may be related to pre-hypertension and requires further evaluation with a primary care provider. The patient has no hypertensive symptoms at this time. The patient's emergency department workup and current diagnosis were explained to the patient and or family. Follow-up instructions were provided. Medications if prescribed were discussed. Instructions for when to return to the emergency department including specific worrisome symptoms were discussed with the patient and/or family. - Vital Signs Vital signs: Temp Pulse Resp BP Pulse Ox 98.9 F 101 H 16 126/66 H 98 10/09/17 15:45 10/09/17 15:45 10/09/17 15:45 10/09/17 15:45 10/09/17 15:45 - Laboratory Result Diagrams: 10/09/17 17:09 Laboratory results interpreted by me: 10/09/17 10/09/17 17:09 18:35 MCH 26.5 L RDW 14.1 H Urine Blood LARGE H Ur Leukocyte Esterase SMALL H Urine Ascorbic Acid 40 H Discharge - Discharge Clinical Impression: Vaginal bleeding, Menstrual cramps Condition: Stable Disposition: HOME, SELF-CARE Instructions: Vaginal Bleeding ([facility]) Additional Instructions: Take medications as prescribed. Drink lots of fluids. Follow-up with [facility] at the next available appointment. Follow-up sooner for increasing pain, fever , persistent vomiting, severe bleeding, changing her pad more than once an hour , or for any further concerns. Your blood pressure was elevated during today's visit. Have this rechecked with your doctor. Prescriptions: Naproxen [Naprosyn] 500 mg PO BID #20 tablet Referrals: PETEY YEUNG MD [ACTIVE STAFF] - Follow up as needed
[2017-10-09 17:20] LABS: HEMATOCRIT 38.4 % (36.0-47.0); HEMOGLOBIN 12.5 g/dL (12.0-15.5); MEAN CORPUSCULAR HEMOGLOBIN 26.5 pg (27.0-33.4); MEAN CORPUSCULAR HGB CONC 32.7 g/dL (32.0-36.0); MEAN CORPUSCULAR VOLUME 81 fl (80-97); PLATELET COUNT 323 10^3/uL (150-450); RED BLOOD COUNT 4.74 10^6/uL (3.72-5.28); RED CELL DISTRIBUTION WIDTH 14.1 % (11.5-14.0); WHITE BLOOD COUNT 4.3 10^3/uL (4.0-10.5)
[2017-10-09 17:50] LABS: RBCS (WET MOUNT) 3+ RBCS SEEN; T.VAGINALIS (WET MOUNT) NO TRICHOMONAS SEEN; WBCS (WET MOUNT) RARE WBCS SEEN; YEAST (WET MOUNT) YEAST SEEN
[2017-10-09 18:54] LABS: APPEARANCE,URINE SLIGHTLY-CLOUDY; BILIRUBIN,URINE NEGATIVE (NEGATIVE); COLOR,URINE YELLOW; GLUCOSE, URINE NEGATIVE (NEGATIVE); KETONES,URINE NEGATIVE (NEGATIVE); LEUKOCYTE ESTERASE,URINE SMALL (NEGATIVE); NITRITE,URINE NEGATIVE (NEGATIVE); PROTEIN,URINE NEGATIVE (NEGATIVE); URINE SPECIFIC GRAVITY 1.021; UROBILINOGEN,URINE NEGATIVE mg/dL (<2.0)
[2017-10-09] MEDS ORDERED: IBUPROFEN 600 MG TABLET PO ONE (18:56)
[2017-10-09 19:17] LABS: CHLAM PCR NOT DETECTED (NOT DETECT); GON PCR NOT DETECTED (NOT DETECT)
[2017-10-09 19:23] VITALS: BP 116/65
== END 2017-10-09 19:28 | disposition home or self-care (01) ==
LOC: ER 15:40
DX: N94.6 Dysmenorrhea, unspecified (principal); R10.2 Pelvic and perineal pain; R10.9 Unspecified abdominal pain
CPT/HCPCS: 36415; 81001; 81025; 85027; 87086; 87210; 87491; 87591; 99284

== ENCOUNTER 2017-10-10 17:45 | Emergency (ER) | payer SELFPAY ==
--- NOTE | 2017-10-10 19:25 | ER Document Report ---
ED Medical Screen (RME) - General Chief Complaint: Pelvic Pain Stated Complaint: LEG PAIN Time Seen by Provider: 10/10/17 18:52 Mode of Arrival: Ambulatory Information source: Patient, [facility] Records Notes: 22-year-old female is here yesterday presents with complaints of continued pelvic pain vaginal bleeding. Patient denies any fevers or chills admits the pain is now gone to her back and the upper part of her legs I have greeted and performed a rapid initial assessment of this patient. A comprehensive ED assessment and evaluation of the patient, analysis of test results and completion of the medical decision making process will be conducted by additional ED providers. PHYSICAL EXAMINATION: GENERAL: Well-appearing, well-nourished and in no acute distress. HEAD: Atraumatic, normocephalic. EYES: Pupils equal round extraocular movements intact, conjunctiva are normal. ENT: Nares patent NECK: Normal range of motion LUNGS: No respiratory distress Musculoskeletal: Normal range of motion NEUROLOGICAL: Normal speech, normal gait. PSYCH: Normal mood, normal affect. SKIN: Warm, Dry, normal turgor, no rashes or lesions noted. TRAVEL OUTSIDE OF THE [place] IN LAST 30 DAYS: No - Related Data Allergies/Adverse Reactions: No Known Allergies Allergy (Verified 10/10/17 17:46) Past Medical History - Social History Chew tobacco use (# tins/day): No Frequency of alcohol use: None Drug Abuse: None Family history: Reviewed & Not Pertinent Renal/ Medical History: Denies: Hx Peritoneal Dialysis - Immunizations Immunizations up to date: Yes Hx Diphtheria, Pertussis, Tetanus Vaccination: Yes Physical Exam - Vital signs Vitals: Temp Pulse Resp BP Pulse Ox 98.7 F 92 18 133/72 H 99 10/10/17 17:54 10/10/17 17:54 10/10/17 17:54 10/10/17 17:54 10/10/17 17:54 Course - Vital Signs Vital signs: Temp Pulse Resp BP Pulse Ox 98.7 F 92 18 133/72 H 99 10/10/17 17:54 10/10/17 17:54 10/10/17 17:54 10/10/17 17:54 10/10/17 17:54
[2017-10-10 19:54] LABS: ABSOLUTE EOSINOPHILS # (AUTO) 0.1 10^3/uL (0.0-0.6); ABSOLUTE LYMPHOCYTES (AUTO) 1.3 10^3/uL (0.5-4.7); ABSOLUTE MONOCYTES (AUTO) 0.4 10^3/uL (0.1-1.4); BASOPHILS % (AUTO) 0.5 % (0-2); EOSINOPHILS % (AUTO) 2.6 % (0-6); HEMATOCRIT 39.7 % (36.0-47.0); HEMOGLOBIN 12.9 g/dL (12.0-15.5); LYMPHOCYTES % (AUTO) 26.9 % (13-45); MEAN CORPUSCULAR HEMOGLOBIN 26.5 pg (27.0-33.4); MEAN CORPUSCULAR HGB CONC 32.6 g/dL (32.0-36.0); MEAN CORPUSCULAR VOLUME 82 fl (80-97); MONOCYTES % (AUTO) 8.7 % (3-13); PLATELET COUNT 326 10^3/uL (150-450); RED BLOOD COUNT 4.87 10^6/uL (3.72-5.28); SEGMENTED NEUTROPHILS % (AUTO) 61.3 % (42-78); TOTAL CELLS COUNTED % (AUTO) 100 %; WHITE BLOOD COUNT 4.9 10^3/uL (4.0-10.5)
[2017-10-10 20:16] LABS: ALANINE AMINOTRANSFERASE 19 U/L (9-52); ALBUMIN 4.2 g/dL (3.5-5.0); ALKALINE PHOSPHATASE 86 U/L (38-126); ANION GAP 15 (5-19); ASPARTATE AMINO TRANSFERASE 18 U/L (14-36); BILIRUBIN,DIRECT 0.2 mg/dL (0.0-0.4); BILIRUBIN,TOTAL 0.2 mg/dL (0.2-1.3); BLOOD UREA NITROGEN 4 mg/dL (7-20); CALCIUM 9.5 mg/dL (8.4-10.2); CARBON DIOXIDE 25 mmol/L (22-30); CHLORIDE 106 mmol/L (98-107); GLUCOSE 89 mg/dL (75-110); POTASSIUM 3.7 mmol/L (3.6-5.0); SODIUM 145.6 mmol/L (137-145); TOTAL PROTEIN 7.5 g/dL (6.3-8.2)
--- NOTE | 2017-10-10 20:30 | RADIOLOGY REPORT (SQ) ---
EXAM DESCRIPTION: U/S NON OB PEL TV W/DOPPLER COMPLETED DATE/TIME: 10/10/2017 8:18 pm REASON FOR STUDY: pelvic pain COMPARISON: None. TECHNIQUE: Dynamic and static grayscale images acquired of the pelvis via transvaginal approach and recorded on PACS. Additional selected color Doppler and spectral images recorded. LIMITATIONS: None. FINDINGS: UTERUS: Contour normal. No mass. ENDOMETRIAL STRIPE: No focal or generalized thickening. No masses. CERVIX: No nabothian cysts. RIGHT ADNEXUM: No abnormal masses. RIGHT OVARY AND DOPPLER: Normal size. No worrisome masses. Normal arterial vascular flow without ashish dence for torsion. LEFT ADNEXUM: No abnormal masses. LEFT OVARY AND DOPPLER: Normal size. No worrisome masses. Normal arterial vascular flow without evide nce for torsion. FREE FLUID: None noted. OTHER: No other significant finding. MEASUREMENTS: UTERUS: 7 x 4 x 4.5 cm. ENDOMETRIAL STRIPE: 5.3 mm. RIGHT OVARY: 3.7 x 2.0 x 2.0 cm. LEFT OVARY: 2.0 x 2.0 x 2.1 cm. IMPRESSION: NORMAL TRANSVAGINAL PELVIC ULTRASOUND. TECHNICAL DOCUMENTATION: JOB ID: [id number] [employer]- All Rights Reserved Reading location - IP/workstation name: [email or web address]
--- NOTE | 2017-10-10 20:35 | ER Document Report ---
ED GI/ - General Chief Complaint: Pelvic Pain Stated Complaint: LEG PAIN Time Seen by Provider: 10/10/17 18:52 Mode of Arrival: Ambulatory Notes: Patient is a 22-year-old female who presents to emergency department with vaginal bleeding and lower abdominal cramping. Patient was seen in this department yesterday for same complaint. Patient reports that she has been on Depo-Provera for the last year and a half, and they have been giving it to her every 2 months instead of every 3 months as it is supposed to be given. Patient reports that this was noticed early this year so they have now spaced out the doses and have given her on her last dose in August. Patient reports that since then she has had irregular vaginal bleeding with associated lower abdominal cramping. Patient denies any fever chills nausea or vomiting. Patient denies any other past medical history. TRAVEL OUTSIDE OF THE [place] IN LAST 30 DAYS: No - Related Data Allergies/Adverse Reactions: No Known Allergies Allergy (Verified 10/10/17 17:46) Past Medical History - General Information source: Patient, [facility] Records - Social History Smoking Status: Never Smoker Chew tobacco use (# tins/day): No Frequency of alcohol use: None Drug Abuse: None Family History: None Patient has suicidal ideation: No Patient has homicidal ideation: No Renal/ Medical History: Denies: Hx Peritoneal Dialysis - Immunizations Immunizations up to date: Yes Hx Diphtheria, Pertussis, Tetanus Vaccination: Yes Review of Systems - Review of Systems Constitutional: No symptoms reported EENT: No symptoms reported Cardiovascular: No symptoms reported Respiratory: No symptoms reported Gastrointestinal: No symptoms reported Genitourinary: No symptoms reported Female Genitourinary: See HPI Musculoskeletal: No symptoms reported Skin: No symptoms reported Hematologic/Lymphatic: No symptoms reported Neurological/Psychological: No symptoms reported Physical Exam - Vital signs Vitals: Temp Pulse Resp BP Pulse Ox 98.7 F 92 18 133/72 H 99 10/10/17 17:54 10/10/17 17:54 10/10/17 17:54 10/10/17 17:54 10/10/17 17:54 - Notes Notes: PHYSICAL EXAMINATION: GENERAL: Well-appearing, well-nourished and in no acute distress. HEAD: Atraumatic, normocephalic. EYES: Pupils equal round and reactive to light, extraocular movements intact, conjunctiva are normal. ENT: Nares patent, oropharynx clear without exudates. Moist mucous membranes. NECK: Normal range of motion, supple without lymphadenopathy LUNGS: Breath sounds clear to auscultation bilaterally and equal. No wheezes rales or rhonchi. HEART: Regular rate and rhythm without murmurs ABDOMEN: Soft, nontender, nondistended abdomen. No guarding, no rebound. No masses appreciated. Female : deferred Musculoskeletal: Normal range of motion, no pitting or edema. No cyanosis. NEUROLOGICAL: Cranial nerves grossly intact. Normal speech, normal gait. Normal sensory, motor exams PSYCH: Normal mood, normal affect. SKIN: Warm, Dry, normal turgor, no rashes or lesions noted. Course - Re-evaluation Re-evalutation: 22-year-old female presenting with vaginal bleeding. She states that she has soaked through one pad in the last 3 hours. Patient seen in this department yesterday and had blood work and a pelvic exam performed. Triage provider ordered blood work and a transvaginal ultrasound. Patient declining pelvic exam at this time stating that she really wants to know the results of the ultrasound. On reevaluation of this patient, patient reports mild low abdominal cramping 1 out of 5 which she is requesting ibuprofen for. Transvaginal ultrasound reported and shows no masses no cysts no other abnormalities. Hemoglobin and hematocrit are stable compared with yesterday's visit. Patient states that she has had the same pad on since she returned from ultrasound and it has not been saturated. Will discharge patient with referral to LIFT MANAGER, and will place on p.o. Toradol for cramping. Strict return precautions given. - Vital Signs Vital signs: Temp Pulse Resp BP Pulse Ox 98.7 F 92 18 133/72 H 99 10/10/17 17:54 10/10/17 17:54 10/10/17 17:54 10/10/17 17:54 10/10/17 17:54 - Laboratory Result Diagrams: 10/10/17 19:39 10/10/17 19:39 Laboratory results interpreted by me: 10/10/17 10/10/17 19:39 19:39 MCH 26.5 L Sodium 145.6 H BUN 4 L Discharge - Discharge Clinical Impression: Vaginal bleeding, abnormal Condition: Stable Disposition: HOME, SELF-CARE Instructions: Vaginal Bleeding ([facility]) Additional Instructions: Vaginal Bleeding You are having an episode of abnormal bleeding. This is likely being caused you are Depo-Provera injections. The vaginal ultrasound that we performed today was normal and you have been provided copies. Your blood work does not show any anemia. "Dysfunctional uterine bleeding" is due to hormone imbalance, and is especially common at times when the normal cycle is disturbed -- whether by recent , use of control pills or hormones, or impending menopause. Sometimes, the normal menstrual cycle corrects itself naturally. Sometimes, brief hormone therapy, or even a D&C is required. Your physician will advise you. Treatment for anemia may be required if bleeding is severe. You should rest and avoid intercourse until the bleeding is controlled. Call the doctor or return for re-examination if you feel faint, have increasing pain , or have a major increase in the amount of bleeding. Prescriptions: Ketorolac Tromethamine [Toradol 10 mg Tablet] 10 mg PO Q8 PRN #30 tablet PRN Reason: Pain Scale Per Md Referrals: ESTELA GALINDO MD [ACTIVE STAFF] - Follow up as needed HARIS MALONE MD [EMERITUS] - Follow up as needed
[2017-10-10] MEDS ORDERED: IBUPROFEN 800 MG TABLET PO ONE (20:52)
[2017-10-10 21:33] VITALS: BP 125/69
== END 2017-10-10 21:34 | disposition home or self-care (01) ==
LOC: ER 17:45
DX: N93.8 Other specified abnormal uterine and vaginal bleeding (principal); R10.2 Pelvic and perineal pain; R10.30 Lower abdominal pain, unspecified
CPT/HCPCS: 36415; 76830; 80053; 84703; 85025; 93976; 99284